=== PATIENT | female | born 1965 | race American Indian/Alaskan Native ===

== ENCOUNTER 2017-12-16 20:07 | Emergency (ER) | payer OTHER ==
[2017-12-16 20:31] VITALS: BP 117/75; PULSE 79; RESP 20; TEMP 97.9; O2SAT 98
--- NOTE | 2017-12-16 22:44 | C.PDOC ---
History Of Present Illness 52 y/o female c/o pain to right upper arm x few days. pt sts she fell on that arm recently. denies neck pain. no numbness or tingling. no fevers. Time Seen by Provider: 12/16/17 21:34 Chief Complaint (Nursing): Upper Extremity Problem/Injury History Per: Patient History/Exam Limitations: no limitations Onset/Duration Of Symptoms: Days Current Symptoms Are (Timing): Still Present Quality: "Pain" Severity: Mild Exacerbating Factor(s): Worse At Night Past Medical History Reviewed: Historical Data, Nursing Documentation, Vital Signs Vital Signs: Last Vital Signs Temp 97.9 F 12/16/17 20:26 Pulse 79 12/16/17 20:26 Resp 20 12/16/17 20:26 BP 117/75 12/16/17 20:26 Pulse Ox 98 12/16/17 22:52 - Medical History PMH: No Chronic Diseases Family History: States: Unknown Family Hx - Social History Hx Alcohol Use: Yes Hx Substance Use: No Review Of Systems Constitutional: Negative for: Fever, Chills Cardiovascular: Negative for: Chest Pain, Palpitations Respiratory: Negative for: Cough, Shortness of Breath Musculoskeletal: Positive for: Arm Pain (right upper). Negative for: Neck Pain , Shoulder Pain Neurological: Negative for: Weakness, Numbness Physical Exam - Physical Exam Appears: Non-toxic, No Acute Distress Skin: Normal Color, Warm, Dry Head: Atraumatic, Normacephalic Neck: No Midline Cervical Tenderness, No Paracervical Tenderness, Supple Extremity: Normal ROM (tedner with full extension right arm), Capillary Refill ( less than 2 seconds), No Swelling, Other (right upper arm tender. no aswelling. erythema, or warmth noted compartment soft. from at shoulder. ) Extremity: Bilateral: Atraumatic Neurological/Psych: Oriented x3, Normal Speech, Normal Cognition, Normal Motor, Normal Sensation ED Course And Treatment O2 Sat by Pulse Oximetry: 98 Medical Decision Making Medical Decision Making: right upper arm pain x few days. no signs/symptoms. of infection. no bony tenderness to consider fracture. dec pain with toradol; will d/c with nsaids and orthof/u/ Disposition Counseled Patient/Family Regarding: Diagnosis, Need For Followup, Rx Given - Disposition Referrals: Dean Molina MD [Staff Provider] - Disposition: HOME/ ROUTINE Disposition Time: 22:51 Condition: IMPROVED Additional Instructions: Please take ibuprofen (with food) as porescrbied for arm pain. Follow up with your primary care doctor or with orthopedics in a few days. Return to ER for any worse symptoms. Avoid heavy lifting/ Prescriptions: Ibuprofen [Motrin] 600 mg PO TID #30 tab Forms: [facility] (Par[place]ayan), General Discharge Instructions - Clinical Impression Clinical Impression: Pain in right upper arm
== END 2017-12-16 23:01 | disposition home or self-care (01) ==
LOC: C.ER 20:07
DX: M79.621 Pain in right upper arm (principal)
CPT/HCPCS: 96372; 99283; J1885

== ENCOUNTER 2018-10-10 09:47 | Outpatient (CLI) | payer OTHER | END 2018-10-10 09:48 | disposition home or self-care (01) | LOC: C.MAMMO 09:47 | DX: Z12.31 Encounter for screening mammogram for malignant neoplasm of breast (principal) ==